=== PATIENT | male | born 1995 | race Caucasian/White ===

== ENCOUNTER 2017-03-08 11:57 | Emergency (ER) | payer OTHER ==
[~2017-03-08] VITALS: Ht 180.3 cm; Wt 52.8 kg
[~2017-03-08 11:57] MED LIST: AMOXICILLIN875 MG PO; ATARAX,VISTARIL25 MG PO; LAMICTAL100 MG PO; LAMICTAL200 MG PO; LEXAPRO10 MG PO; ONDANSETRON ODT4 MG PO; PHENERGAN25 MG PR; PROMETHAZINE HC25 M1 PO; RANITIDINE HCL150 MG PO; TRAZODONE; XANAX; XANAX0.25 MG PO; ZOFRAN4 MG PO
[2017-03-08 13:04] LABS: HEMATOCRIT 46.2 % (38.0-50.0); MCH 32.7 PG (29.0-34.0); MCHC 34.8 G/DL (30.0-36.0); MCV 93.7 FL (86-99); MEAN PLAT.VOLUME 11.4 uM^3 (9.0-12.4); PLATELET COUNT 213 K/uL (156-360); RBC DIS.WIDTH-CV 12.6 % (11.8-14.6); RBC DIS.WIDTH-SD 43.7 % (39-53); RED BLOOD COUNT 4.93 M/uL (4.00-5.50); WHITE BLOOD COUNT 17.3 K/uL (4.1-10.2)
[2017-03-08 13:12] LABS: CHLORIDE 106 mEq/L (99-109); POTASSIUM 4.3 mEq/L (3.7-5.4); SODIUM 143 mEq/L (136-147)
[2017-03-08 13:15] LABS: GLUCOSE 92 mg/dL (70-99)
[2017-03-08 13:16] LABS: ANION GAP 19 MEQ/L (2-14); TOTAL BILIRUBIN 3.1 mg/dL (0.0-1.0)
[2017-03-08 13:18] LABS: ALKALINE PHOSPHATASE 90 IU/L (3-129); GFR ESTIMATE (CALCULATED) > 59 mL/min/
[2017-03-08 13:19] LABS: UREA NITROGEN (BUN) 15 mg/dL (9-23)
[2017-03-08 13:44] LABS: LIPASE 4 U/L (1.0-51.0)
[2017-03-08 14:46] LABS: ADD MIUA? YES; BILIRUBIN NEGATIVE; BLOOD SMALL; COLOR YELLOW ((YELLOW)); GLUCOSE (STRIP) NEGATIVE; KETONES 80; LEUKOCYTES NEGATIVE; NITRITE NEGATIVE; PROTEIN (STRIP) 100; SPECIFIC GRAVITY 1.027 (1.000-1.030); UROBILINOGEN 0.2 MG/DL (0.2-1.0)
[2017-03-08 14:55] LABS: BACTERIA NONE SEEN /HPF; EPITHELIAL CELLS RARE /HPF; MUCUS NONE SEEN /LPF; UCUL ADDED? NO; WHITE BLOOD CELLS 0-5 /HPF (0-5)
[2017-03-08] MEDS ORDERED: ZOFRAN4 MG PO (15:18)
[2017-03-08] MEDS ORDERED: PERCOCET 5/31 TABLET PO (15:18)
[2017-03-08 15:53] VITALS: BP 128/73
== END 2017-03-08 15:55 | disposition home or self-care (01) ==
LOC: EME 11:57
DX: B34.9 Viral infection, unspecified (principal); R10.9 Unspecified abdominal pain; F32.9 Major depressive disorder, single episode, unspecified; F41.9 Anxiety disorder, unspecified; F17.200 Nicotine dependence, unspecified, uncomplicated; Z88.8 Allergy status to other drugs, medicaments and biological substances
CPT/HCPCS: 74176; 80053; 81003; 83690; 85027; 99281; 99283; J1885; J2405; J7030

== ENCOUNTER → 2017-12-31 | Outpatient (CLI) | payer OTHER ==
[~2017-12-31] MED LIST changes: +PERCOCET 5/31 TABLET PO
== END | disposition home or self-care (01) ==
LOC: EKG 14:00
DX: Q24.8 Other specified congenital malformations of heart (principal); I05.1 Rheumatic mitral insufficiency; I07.1 Rheumatic tricuspid insufficiency
CPT/HCPCS: 93306